=== PATIENT | male | born 1965 | race Hispanic/Latino ===

== ENCOUNTER 2021-10-21 16:33 | Observation (INO) | payer OTHER ==
[~2021-10-21] VITALS: Ht 175.3 cm; Wt 95.3 kg
[2021-10-21 17:09] LABS: BASOPHILS % (AUTO) 0.2 % (0.0-5.0); EOSINOPHILS % (AUTO) 0.2 % (0.0-8.0); LYMPHOCYTES % (AUTO) 8.5 % (21.0-51.0); MEAN CORPUSCULAR HEMOGLOBIN 29.9 pg (27.0-33.0); MEAN CORPUSCULAR HGB CONC 34.3 g/dL (32.0-36.0); MEAN CORPUSCULAR VOLUME 87.1 fL (79-99); MONOCYTES % (AUTO) 8.3 % (3.0-13.0); NEUTROPHILS % (AUTO) 82.4 % (40.0-77.0); PLATELET COUNT (AUTO) 266 K/uL (130-400); RED BLOOD CELL COUNT(AUTO) 5.05 MIL/uL (4.50-6.20); RED CELL DISTRIBUTION WIDTH 12.2 % (11.0-15.5); WHITE BLOOD COUNT (AUTO) 16.9 K/uL (4.8-10.8)
[2021-10-21 17:22] LABS: CREATININE 0.9 mg/dL (0.5-1.5); POTASSIUM 3.6 mmol/L (3.5-5.1)
[2021-10-21 17:27] LABS: ALBUMIN 3.7 g/dL (3.5-5.0); BILIRUBIN,TOTAL 0.7 mg/dL (0.2-1.0); TOTAL PROTEIN, SERUM 7.5 g/dL (6.0-8.3)
[2021-10-21] MEDS ORDERED: LORAZEPAM 2 MG/ML 1 ML VIAL IM PRN (18:30)
[2021-10-21] MEDS ORDERED: COMPOUND IV MISC 1 EACH IVSOLN MISC PRN (19:00)
[2021-10-21 20:38] LABS: APPEARANCE,URINE Cloudy (CLEAR); BILIRUBIN,URINE Negative (NEGATIVE); COLOR,URINE Yellow (YELLOW); GLUCOSE, URINE (UA) Negative (NEGATIVE); KETONES,URINE Negative (NEGATIVE); LEUKOCYTE ESTERASE ,URINE Negative (NEGATIVE); NITRATE,URINE Negative (NEGATIVE); OCCULT BLOOD,URINE Negative (NEGATIVE); PROTEIN,URINE Negative (NEGATIVE)
[2021-10-21 20:44] LABS: AMPHET/METH SCREEN,URINE NEGATIVE (NEGATIVE); BARBITURATE SCREEN, URINE NEGATIVE (NEGATIVE); BENZODIAZEPINES SCREEN,URINE NEGATIVE (NEGATIVE); CANNABINOID SCREEN,URINE NEGATIVE (NEGATIVE); COCAINE SCREEN,URINE NEGATIVE (NEGATIVE); OPIATE SCREEN,URINE NEGATIVE (NEGATIVE); PHENCYCLIDINE SCREEN,URINE NEGATIVE (NEGATIVE)
[2021-10-21 20:50] LABS: BACTERIA,URINE Few /HPF (None Seen); MUCUS,URINE Moderate LPF (None Seen); RBC,URINE 0-1 /HPF (0-1); SQUAMOUS EPITHELIAL CELL,UR Rare /HPF (0-2); WBC,URINE 0-1 /HPF (0-1)
[2021-10-21 21:24] VITALS: BP 140/81
[2021-10-22] MEDS ORDERED: LEVETIRACETAM 1,000 MG in 0.9%NACL 100ML 100 ML IV SCH (09:00)
== END 2021-10-21 21:55 | disposition short-term general hospital (02) ==
LOC: EDH 16:33 → EDHIP 18:22
PROVIDERS: ADMIT Internal Medicine Infectious Disease; ATTEND Internal Medicine Infectious Disease
DX: R41.82 Altered mental status, unspecified (principal); Z20.822 Contact with and (suspected) exposure to COVID-19; R22.0 Localized swelling, mass and lump, head; G93.9 Disorder of brain, unspecified; I10 Essential (primary) hypertension; E78.00 Pure hypercholesterolemia, unspecified; Z79.899 Other long term (current) drug therapy; Z98.890 Other specified postprocedural states; Z21 Asymptomatic human immunodeficiency virus [HIV] infection status
CPT/HCPCS: 36415; 70450; 80053; 80305; 81001; 82140; 84484; 85025; 86641; 86701; 87390; 87635; 93005; 99285; G0378 ×3; J1953

== ENCOUNTER 2022-05-12 21:17 | Emergency (ER) | payer OTHER ==
[~2022-05-12] VITALS: Ht 172.7 cm; Wt 106.6 kg
[2022-05-12] MEDS ORDERED: ONDANSETRON 4MG INJ IVP ONE (22:00)
[2022-05-12] MEDS ORDERED: KETOROLAC 30MG VIAL (30MG/ML) IVP ONE (22:00)
[2022-05-12 22:23] LABS: BASOPHILS % (AUTO) 0.9 % (0.0-5.0); EOSINOPHILS % (AUTO) 3.4 % (0.0-8.0); LYMPHOCYTES % (AUTO) 31.5 % (21.0-51.0); MEAN CORPUSCULAR HEMOGLOBIN 26.6 pg (27.0-33.0); MEAN CORPUSCULAR HGB CONC 33.6 g/dL (32.0-36.0); MEAN CORPUSCULAR VOLUME 79.1 fL (79-99); MONOCYTES % (AUTO) 10.5 % (3.0-13.0); NEUTROPHILS % (AUTO) 53.3 % (40.0-77.0); PLATELET COUNT (AUTO) 297 K/uL (130-400); RED BLOOD CELL COUNT(AUTO) 5.94 MIL/uL (4.50-6.20); RED CELL DISTRIBUTION WIDTH 14.3 % (11.0-15.5); WHITE BLOOD COUNT (AUTO) 10.1 K/uL (4.8-10.8)
[2022-05-12 22:43] LABS: ALBUMIN 3.6 g/dL (3.5-5.0); BILIRUBIN,TOTAL 0.5 mg/dL (0.2-1.0); POTASSIUM 3.5 mmol/L (3.5-5.1); TOTAL PROTEIN, SERUM 7.5 g/dL (6.0-8.3)
[2022-05-12 22:45] LABS: APPEARANCE,URINE CLEAR (CLEAR); BILIRUBIN,URINE NEGATIVE (NEGATIVE); COLOR,URINE YELLOW (YELLOW); GLUCOSE, URINE (UA) NEGATIVE (NEGATIVE); KETONES,URINE NEGATIVE (NEGATIVE); LEUKOCYTE ESTERASE ,URINE NEGATIVE (NEGATIVE); NITRATE,URINE NEGATIVE (NEGATIVE); OCCULT BLOOD,URINE NEGATIVE (NEGATIVE); PH,URINE 5.5 (5.0-8.0); PROTEIN,URINE TRACE mg/dL (NEGATIVE); UROBILINOGEN,URINE 0.2 mg/dL (0.2-1.0)
[2022-05-12 23:06] LABS: CREATININE 1.2 mg/dL (0.5-1.5)
[2022-05-12 23:13] VITALS: BP 123/65
[2022-05-12] MEDS ORDERED: DICY20TA2 PO (23:24)
[2022-05-12] MEDS ORDERED: ONDA4TAB10 PO (23:24)
== END 2022-05-12 23:37 | disposition home or self-care (01) ==
LOC: EDH 21:17
DX: K42.9 Umbilical hernia without obstruction or gangrene (principal); K40.20 Bilateral inguinal hernia, without obstruction or gangrene, not specified as recurrent; K57.30 Diverticulosis of large intestine without perforation or abscess without bleeding; E11.9 Type 2 diabetes mellitus without complications; E78.00 Pure hypercholesterolemia, unspecified; I10 Essential (primary) hypertension; Z79.899 Other long term (current) drug therapy
CPT/HCPCS: 36415; 71045; 74176; 80053; 81003; 82150; 84484; 85025; 96374; 96375; 99285; J1885; J2405

== ENCOUNTER → 2024-06-25 | Outpatient (CLI) | payer OTHER ==
[~2024-06-25] MED LIST: DICY20TA2 PO; ONDA-243 PO
[2024-06-25 15:38] LABS: ALBUMIN 3.6 g/dL (3.5-5.0); BILIRUBIN,TOTAL 0.8 mg/dL (0.2-1.0); POTASSIUM 3.8 mmol/L (3.5-5.1); TOTAL PROTEIN, SERUM 7.4 g/dL (6.0-8.3)
== END | disposition home or self-care (01) ==
LOC: RAH 13:44
PROVIDERS: ATTEND Internal Medicine
DX: D35.2 Benign neoplasm of pituitary gland (principal); I10 Essential (primary) hypertension; E11.9 Type 2 diabetes mellitus without complications
CPT/HCPCS: 36415; 70551; 80053

== ENCOUNTER → 2024-06-30 | Outpatient (CLI) | payer OTHER ==
[~2024-06-30] MED LIST changes: +GADOTERATE MEGLUMINE 10 MMOL/20 ML VIAL IV ONE
== END | disposition home or self-care (01) ==
LOC: RAH 09:15
PROVIDERS: ATTEND Internal Medicine
DX: D35.2 Benign neoplasm of pituitary gland (principal); G93.89 Other specified disorders of brain
CPT/HCPCS: 70553; A9575

== ENCOUNTER → 2025-06-03 | Outpatient (CLI) | payer OTHER ==
[~2025-06-03] MED LIST changes: +AMLO-257 PO; +ATOR10 PO; +BUSPAR PO; +DESM0.1T24 PO; -DICY20TA2 PO; +DONE-53 PO; +HYDR10TA PO; +LEVE250T2 PO; +LEVE750T85 PO; +LEVO100C5 PO; -ONDA-243 PO; +PANT40TA54 PO; +SEMA1PEN3 SQ; +TEST200V21 IM
--- NOTE | 2025-06-04 07:50 | HMCIMG ---
EXAM: MR Brain and Pituitary Gland Without and With IV Contrast CLINICAL HISTORY: Benign neoplasm of the pituitary gland. TECHNIQUE: Multiplanar multi-sequence MRI of the brain. COMPARISON: MRI of the pituitary. 06/30/2024. FINDINGS: Stable enlarged heterogeneously enhancing pituitary gland measuring 2.0 x 1.3 x 2.3 cm in its maximum anteroposterior, craniocaudal, and transverse dimensions. Small focal gliosis in the right frontal lobe. No evidence of acute cortical infarction, hemorrhage, mass, or mass effect. The ventricular system, sulci, and cisterns appear mildly prominent. No hydrocephalus. No abnormal extra-axial fluid collection is present. The marrow signal within the skull base and calvarium is intact. The mastoid air cells are clear. Moderate bilateral maxillary sinusitis. IMPRESSION: 1. Stable pituitary neoplasm. 2. Stable focal gliosis in the right frontal lobe. 3. Age-related cerebral atrophy. 4. Redemonstrated is moderate bilateral maxillary sinusitis. /[place]
== END | disposition home or self-care (01) ==
LOC: RAH 08:26
PROVIDERS: ATTEND Internal Medicine
DX: D35.2 Benign neoplasm of pituitary gland (principal); J32.0 Chronic maxillary sinusitis; E23.6 Other disorders of pituitary gland; G31.9 Degenerative disease of nervous system, unspecified; G93.89 Other specified disorders of brain
CPT/HCPCS: 70553; A9575